=== PATIENT | female | born 1965 | race Two or more races ===

== ENCOUNTER 2023-08-13 08:56 | Emergency (ER) | payer MEDICAID, OTHER ==
[~2023-08-13] VITALS: Ht 180.3 cm; Wt 52.9 kg
[2023-08-13 09:38] VITALS: BP 133/94; PULSE 88; RESP 19; TEMP 98.6; O2SAT 99
[2023-08-13] MEDS ORDERED: KETOROLAC TROMETH 30 MG/ML 1ML VIAL IM ONE (11:30)
[2023-08-13] MEDS ORDERED: AZIT500T66 PO (11:30)
== END 2023-08-13 11:40 | disposition home or self-care (01) ==
LOC: EDBD 08:56 → ER 08:56
DX: S20.212A Contusion of left front wall of thorax, initial encounter (principal); J18.9 Pneumonia, unspecified organism; Z88.1 Allergy status to other antibiotic agents; W18.09XA Striking against other object with subsequent fall, initial encounter; Y93.89 Activity, other specified; Y92.89 Other specified places as the place of occurrence of the external cause; Y99.8 Other external cause status
CPT/HCPCS: 71250